=== PATIENT | male | born 1960 | race Caucasian/White ===

== ENCOUNTER 2020-10-13 06:42 | Observation (INO) | payer BC ==
[2020-10-13] VITALS (7 sets, daily range): BP systolic 109–148; BP diastolic 67–85
[~2020-10-13] VITALS: Ht 185.4 cm; Wt 103.0 kg
[2020-10-13] MEDS ORDERED: FEXOFENADINE-P1 EACH PO (07:00)
[2020-10-13] MEDS ORDERED: MONTELUKAST SODI4 M1 PO (07:00)
[2020-10-13] MEDS ORDERED: CLOBETASOL PROP50 M1 TOP (07:01)
[2020-10-13] MEDS ORDERED: MINOCYCLINE 5050 M1 PO (07:01)
[2020-10-13] MEDS ORDERED: LYRICA100 MG PO (07:02)
[2020-10-13 07:22] LABS: ABSOLUTE BASOPHILS 0.1 thou/uL (0.0-0.2); ABSOLUTE LYMPHOCYTES 0.9 thou/uL (0.8-5.3); ABSOLUTE MONOCYTES 0.3 thou/uL (0.0-1.2); ABSOLUTE NEUTROPHILS 8.1 thou/uL (1.6-8.1); BASOPHILS 0.5 %; EOSINOPHILS 0.2 %; HEMATOCRIT 45.5 % (42.0-52.0); HEMOGLOBIN 15.8 gm/dL (14.0-18.0); LYMPHOCYTES 9.1 %; MCH 30.7 pg (26.0-34.0); MCHC 34.7 g/dL (28.0-37.0); MCV 88.6 fL (80.0-100.0); MONOCYTES 3.3 %; MPV 7.1 fl. (7.2-11.1); NUCLEATED RBCS 0 /100WBC; PLATELET COUNT* 309 thou/uL (150-400); POLYS 86.9 %; RBC 5.13 mil/uL (4.50-6.00); RDW-CV 13.5 % (10.5-14.5); WBC 9.4 thou/uL (4.0-11.0)
[2020-10-13 07:28] LABS: CALCIUM 8.6 mg/dL (8.5-10.1); POTASSIUM 3.6 mmol/L (3.5-5.1)
[2020-10-13 07:38] LABS: ALBUMIN 3.8 g/dL (3.4-5.0); MAGNESIUM 1.9 mg/dL (1.8-2.4); TOTAL BILIRUBIN 0.6 mg/dL (<0.1-1.0); TOTAL PROTEIN 7.7 g/dL (6.4-8.2)
--- NOTE | 2020-10-13 10:07 | EKG ---
[place] [address] ELECTROCARDIOGRAM REPORT Name: ANG ROWELL Room: [address]R.#: [id number] Admission: 10/13/20 Attend Phys: Tyler Noe, Discharge: Date of : 62 Date of Service: 10/13/20 0651 Report #: [id number] THIS REPORT FOR: //name// [facility] ED Test Date: 2020-10-13 Test Time: 06:51:50 Pat Name: ANG LELIA Department: Room: [facility] Gender: M Filler Operator: CARLOS : 1960 Requested By: Dimitry Reyez Order Number: [id number] MD: Yariel Lopez Measurements Intervals [place] Rate: 58 P: 16 NM: 157 QRS: 59 QRSD: 136 T: 150 QT: 438 QTc: 431 Interpretive Statements Sinus rhythm Nonspecific intraventricular conduction delay Abnormal T, consider ischemia, lateral leads No previous ECG available for comparison Electronically Signed On 10-13-2020 10:07:33 CDT by Yariel Lopez [email or web address] <ELECTRONICALLY SIGNED> By: Yariel Lopez MD, FACC 10/13/20 1007 0651 0651 Yariel Lopez MD, [facility] /EPI
--- NOTE | 2020-10-13 16:59 | EXE ---
[place] [address] STRESS ECHOCARDIOGRAM Name: LELIAANG MICHELE Room: [address] Gabriel#: [id number] Admission: 10/13/20 Attend Phys: Tyler Noe, Discharge: Date of : 62 Date of Service: 10/13/20 1659 Report #: [id number] THIS REPORT FOR: cc: LC GARSIA,LC Lopez,Yariel Gonzalez MD [facility] ~ APPROVED REPORT Study performed: 10/13/2020 16:01:41 Exam: Stress Echocardiogram Indication: Chest pain Patient Location: In-Patient Stress Nurse: Dolores Paige RN Room #: 227 Supervising Physician: Yariel Lopez MD Ht: 6 ft 1 in HR: 59 bpm BP: 108/66 mmHg Medical History Cardiac Risk Factors: Hyperlipidemia, DM Procedure The patient underwent an Exercise Stress Test using the Gael Protocol. Blood pressure, heart rate, and EKG were monitored. An Echocardiogram was performed by hazardous materials waste technician in four stages in quad fashion. At peak stress, four selected images were obtained and placed side by side with resting images for comparison. Stress Test Details Stress Test: Exercise stress testing was performed using a Gael protocol. HR Resting HR: 59 bpm Max Heart Rate (APMHR): 161 bpm Max HR Achieved: 145 bpm Target HR (85% APMHR): 136 bpm % of APMHR: 90 Recovery HR: 80 bpm HR response to stress: Normal HR response to stress BP Resting BP: 108/66 mmHg Max BP: 156/75 mmHg Recovery BP: 123/[place] [address] STRESS ECHOCARDIOGRAM Name: LELIAANG BARROW Sammy [address] [id number] Admission: 10/13/20 Attend Phys: Tyler Noe, Discharge: Date of : 62 Date of Service: 10/13/20 1659 Report #: [id number] BP response to stress: Normal blood pressure response to stress. ECG Resting ECG: Sinus Rhythm Stress ECG: Sinus Rhythm, nonspecific ST-T abnormalities ST Change: Upsloping ST depression Maximum ST Deviation: 1 mm Arrhythmia: None Recovery ECG: Sinus Rhythm, nonspecific ST-T abnormalities Recovery ST Change: Upsloping ST depression Recovery ST Deviation: 0.5 mm Recovery Arrhythmia: None Clinical Reason for Termination: Completed protocol Exercise duration: 8 min 01 sec Highest Stage Achieved: Stage 3: 3.4 mph at 14% grade. Exercise capacity: 10.14 METs Pre-Stress Echo The resting Echocardiogram showed normal left ventricular contractility with an estimated Ejection Fraction of about 55-60%. Post-Stress Echo The stress Echocardiogram showed normal left ventricular contractility with an estimated Ejection Fraction of about >70%. Compared to rest, there were no stress-induced wall motion abnormalities. Conclusion Clinical Response: Non-ischemic Exercise Capacity: Average Stress ECG Response: Equivocal Stress Echo Images: Non-ischemic low risk stress echo for predicting future cardiac events Other Information Study Quality: [place] [address] STRESS ECHOCARDIOGRAM Name: ANG ROWELL Room: [address] Gabriel#: [id number] Admission: 10/13/20 Attend Phys: Tyler Noe, Discharge: Date of : 62 Date of Service: 10/13/201658 Report #: [id number] <Conclusion> low risk stress echo for predicting future cardiac events <ELECTRONICALLY SIGNED> By: Yariel Lopez MD, FACC 10/13/201658 58 58 Yariel Lopez MD, FACC /INF
[2020-10-13] MEDS ORDERED: OMEPRAZOLE40 MG PO (17:39)
--- NOTE | 2020-10-14 10:54 | CON ---
[address] [address] CONSULTATION Name: ANG ROWELL Sammy Room: [address] Minnie Rios#: [id number] Admission: 10/13/20 Attend Phys: Tyler Noe MD Discharge: 10/13/20 Date of : 62 Report #: [id number] THIS REPORT FOR: cc: LC GARSIA,LC Lopez,Yariel Gonzalez MD [facility] ~ DATE OF SERVICE: 10/13/2020 CARDIOLOGY CONSULTATION HISTORY OF PRESENT ILLNESS: The patient is a 60-year-old white male who I was asked to see in the hospital today after he complained of chest pain. The patient has no previous history of heart disease. He apparently had a stress test years ago. He notes he was doing well until last night about 1 in the morning, he was lying in bed, watching TV when he felt a pain in his back. He then felt an epigastric discomfort. He felt a pressure sensation. It lasted most of the night. He cannot go to sleep. He had nausea and vomited 3 times. There was no blood in his vomit. He denied the pain radiating to his jaw or arms. There was no associated diaphoresis or shortness of breath. He denies any recent trauma to his back or chest. He has had no rash. The pain was not related to food. At this time, his pain is somewhat improved. He denies a history of exertional dyspnea, palpitations, syncope or peripheral edema. PAST MEDICAL HISTORY: He has had tonsillectomy, skin cancer removal, sinus surgery. He has a history of allergies, neuropathy, psoriasis. He previously weighed 275 pounds and had diabetes. He then lost almost 80 pounds and is no longer on medications for diabetes. He has no history of hyperlipidemia or hypertension. ALLERGIES: He has no known drug allergies. FAMILY HISTORY: Negative for heart disease. SOCIAL HISTORY: He is , lives in [place]. He works as a conductor for trains. No smoking or alcohol abuse. REVIEW OF SYSTEMS: He does snore at night. No history of stroke. No history of asthma. He does have seasonal allergies, Singulair. No liver disease, kidney disease. Skin cancer removed in the past. No psychiatric illness. He has chronic skin disorders, psoriasis. He has chronic back pain and sees chiropractor. PHYSICAL EXAMINATION: GENERAL: Revealed a large middle-aged male, who appeared in no distress, [place] [address] CONSULTATION Name: ANG ROWELL Room: [address]#: [id number] Admission: 10/13/20 Attend Phys: Tlyer Noe MD Discharge: 10/13/20 Date of : 62 Report #: [id number] in bed. VITAL SIGNS: He had a blood pressure of 120/70, pulse 60. He is afebrile. HEENT: He was anicteric. Conjunctivae pink. Mucous membranes are moist. NECK: Veins nondistended. No carotid bruits. Neck supple. CHEST: Clear to auscultation. CARDIOVASCULAR: Regular rate and rhythm, no murmur or rubs. ABDOMEN: Soft. EXTREMITIES: Had no edema. Posterior tibial pulse 2+ bilaterally. SKIN: Cool and dry. NEUROLOGIC: Nonfocal. RADIOLOGICAL DATA: His ECG on admission, this morning showed sinus bradycardia. There is T-wave inversion in V4 and V5 and V6. His workup in the Emergency Room today, he had a portable chest x-ray that showed elevated right hemidiaphragm, otherwise unremarkable. LABORATORY WORK: In the Emergency Room today, his creatinine 1.0. His liver function studies were normal. Troponins all 0.06. White blood cell count 9.4, hemoglobin 15.8. His COVID antigen stat test was negative. IMPRESSION AND RECOMMENDATIONS: 1. Chest pain. Atypical for angina. Recommend stress echocardiogram. 2. Abnormal ECG. Recommend stress echocardiogram. 3. Glucose intolerance. The patient is no longer on diabetic medications. 4. Previous history of obesity. 5. Psoriasis. 6. Neuropathy. <ELECTRONICALLY SIGNED> By: Yariel Lopez MD, FACC 10/14/20 1054 1306 1519Davioscar Lopez MD, FACC /nt
== END 2020-10-13 18:30 | disposition home or self-care (01) ==
LOC: M.ERS 06:42 → M.2W 08:27 → M.TBA-ER 08:27 → M.2W 10:24
PROVIDERS: Emergency Medicine Emergency Medical Services; ADMIT Internal Medicine; ATTEND Internal Medicine
DX: R07.2 Precordial pain (principal); R11.2 Nausea with vomiting, unspecified; E78.5 Hyperlipidemia, unspecified; E11.9 Type 2 diabetes mellitus without complications; Z20.822 Contact with and (suspected) exposure to COVID-19